=== PATIENT | male | born 1950 | race Caucasian/White ===

== ENCOUNTER → 2018-05-10 | Outpatient (CLI) | payer OTHER, MEDICARE ==
[~2018-05-10] MED LIST: ACET500 PO; ALBIPROI INH; ASPI81EC; CALCA500CH PO; CEFU500 PO; ESOM20; ONDA4ODT MM; POLY500 PO
== END | disposition home or self-care (01) ==
LOC: PLD 10:11 → LAB SHORT 10:11
DX: L82.1 Other seborrheic keratosis (principal)
CPT/HCPCS: 88305

== ENCOUNTER → 2019-05-16 | Outpatient (CLI) | payer OTHER, MEDICARE | END | disposition home or self-care (01) | LOC: LAB SHORT 11:45 → PLD 11:45 | DX: L82.1 Other seborrheic keratosis (principal) | CPT/HCPCS: 88305 ==

== ENCOUNTER → 2019-11-28 | Outpatient (CLI) | payer OTHER, MEDICARE | END | disposition home or self-care (01) | LOC: PLD 14:57 → LAB SHORT 14:57 | DX: D48.5 Neoplasm of uncertain behavior of skin (principal) | CPT/HCPCS: 88305 ==

== ENCOUNTER → 2019-12-08 | Outpatient (CLI) | payer OTHER, MEDICARE | END | disposition home or self-care (01) | LOC: LAB SHORT 10:50 → PLD 10:50 | DX: C44.219 Basal cell carcinoma of skin of left ear and external auricular canal (principal) | CPT/HCPCS: 88305 ==

== ENCOUNTER → 2020-12-26 | Outpatient (CLI) | payer OTHER, MEDICARE | LOC: LAB SHORT 12:49 | DX: C44.519 Basal cell carcinoma of skin of other part of trunk (principal) | CPT/HCPCS: 88305 ==

== ENCOUNTER → 2021-12-31 | Outpatient (CLI) | payer OTHER | END | disposition home or self-care (01) | LOC: PLD 12:55 → LAB SHORT 12:55 | DX: C44.519 Basal cell carcinoma of skin of other part of trunk (principal) | CPT/HCPCS: 88305 ==

== ENCOUNTER → 2024-01-12 | Outpatient (CLI) | payer MEDICARE | END | disposition home or self-care (01) | LOC: LAB SHORT 10:08 → LAB 10:08 | DX: L82.1 Other seborrheic keratosis (principal) | CPT/HCPCS: 88305 ==